=== PATIENT | male | born 1965 | race African-American/Black ===

== ENCOUNTER 2018-04-09 14:05 | Inpatient (IN) | payer OTHER ==
[2018-04-09 15:13] VITALS: BMI 18.8
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
[2018-04-09] MEDS ORDERED: ACETAMINOPHEN 325 MG TABLET (FP) PO PRN (15:38)
[2018-04-09] MEDS ORDERED: MENTHOL/PHENOL 1 EACH UD MM PRN (15:38)
[2018-04-09] MEDS ORDERED: LOPERAMIDE HCL 2 MG CAPSULE PO PRN (15:38)
[2018-04-09] MEDS ORDERED: MAG HYDROX/AL HYDROX/SIMETH 30 ML UNIT-DOSE CUP PO PRN (15:38)
[2018-04-09] MEDS ORDERED: P-EPHED 60MG/TRIPROLIDI 2.5MG TABLET PO PRN (15:38)
[2018-04-09] MEDS ORDERED: MAGNESIUM HYDROX 2400MG/30ML ORAL SUSPENSION 30 ML CUP PO PRN (15:38)
[2018-04-09] MEDS ORDERED: NICOTINE POLACRILEX 2 MG GUM BC PRN (15:38)
[2018-04-09] MEDS ORDERED: chlordiazePOXIDE HCL 25 MG CAPSULE PO PRN (15:38)
[2018-04-09] MEDS ORDERED: MAGNESIUM CITRATE 300 ML BOTTLE PO PRN (15:38)
[2018-04-09] MEDS ORDERED: guaiFENesin/D-METHORPHAN HB 10 ML UNIT-DOSE CUPS PO PRN (15:38)
[2018-04-09] MEDS ORDERED: ALBUTEROL SO4 18 GM HFA INHALER IH PRN (15:40)
[2018-04-09] MEDS ORDERED: BACITRACIN 0.9 GM PACKET TP ONE (18:45)
[2018-04-09] MEDS: amLODIPine BESYLATE 5 MG TABLET (FP) PO SCH (19:11)
[2018-04-09] MEDS: metFORMIN HCL 500 MG TABLET (FP) PO SCH (19:11)
[2018-04-09] MEDS: chlordiazePOXIDE HCL 25 MG CAPSULE PO SCH ×2 (19:11→22:40)
[2018-04-09] MEDS: NICOTINE 14 MG/24 HOURS TOPICAL PATCH TD SCH (19:15)
[2018-04-09] MEDS: INSULIN SLIDING SCALE (NOVOLOG) 1 VIAL SQ SCH (19:15)
[2018-04-09] MEDS: ARTIFICIAL TEARS (POLYVINYL ALCOHOL 1.4%) OPTH DROPS OU SCH ×2 (19:23→22:39)
[2018-04-09] MEDS ORDERED: MELATONIN 5 MG TABLETS PO PRN (22:00)
[2018-04-09] MEDS: THIAMINE HCL 100 MG TABLET (FP) PO SCH (22:40)
[2018-04-09] MEDS: RANITIDINE HCL 150 MG TABLET (FP) PO SCH (22:40)
[2018-04-09 23:18] LABS: URINE APPEARANCE CLEAR; URINE BILIRUBIN NEGATIVE (<2.0 mg/dL); URINE BLOOD NEGATIVE (NEGATIVE); URINE COLOR LTYELLOW; URINE GLUCOSE (UA) NEGATIVE (NEGATIVE); URINE KETONE NEGATIVE (NEGATIVE); URINE LEUK ESTERASE NEGATIVE (NEGATIVE); URINE NITRITE NEGATIVE (NEGATIVE); URINE PROTEIN NEGATIVE (NEGATIVE); URINE UROBILINOGEN NEGATIVE mg/dL (0.2-1.0)
[2018-04-10] MEDS: chlordiazePOXIDE HCL 25 MG CAPSULE PO SCH ×4 (06:17→22:04)
[2018-04-10] MEDS: INSULIN SLIDING SCALE (NOVOLOG) 1 VIAL SQ SCH ×2 (06:55→16:26)
[2018-04-10] MEDS: metFORMIN HCL 500 MG TABLET (FP) PO SCH ×2 (08:36→17:24)
--- NOTE | 2018-04-10 09:44 | PN ---
S CIWA - CIWA Score Nausea/Vomitin Muscle Tremors: 3 Anxiety: 3 Agitation: 3 Paroxysmal Sweats: 3 Orientation: 0-Oriented Tacttile Disturbances: 0-None Auditory Disturbances: 0-None Visual Disturbances: 0-None Headache: 0-None Present CIWA-Ar Total Score: 14 BHS Progress Note (SOAP) Subjective: Sweats Sleep disturbance shakes Objective: 04/10/18 09:41 Awake on bed Not in distress Vital Signs Temperature 98.6 F 04/10/18 09:29 Pulse Rate 74 04/10/18 09:29 Respiratory Rate 18 04/10/18 09:29 Blood Pressure 124/87 04/10/18 09:29 O2 Sat by Pulse Oximetry (%) Laboratory Last Values POC Glucometer 88 UNITS (80-120) 04/10/18 05:49 Urine Color Ltyellow 04/09/18 22:07 Urine Appearance Clear 04/09/18 22:07 Urine pH 7.0 (5.0-8.0) D 04/09/18 22:07 Ur Specific [place] 1.023 (1.001-1.035) 04/09/18 22:07 Urine Protein Negative (NEGATIVE) 04/09/18 22:07 Urine Glucose (UA) Negative (NEGATIVE) 04/09/18 22:07 Urine Ketones Negative (NEGATIVE) 04/09/18 22:07 Urine Blood Negative (NEGATIVE) 04/09/18 22:07 Urine Nitrite Negative (NEGATIVE) 04/09/18 22:07 Urine Bilirubin Negative (<2.0 mg/dL) 04/09/18 22:07 Urine Urobilinogen Negative mg/dL (0.2-1.0) 04/09/18 22:07 Ur Leukocyte Esterase Negative (NEGATIVE) 04/09/18 22:07 UA noted, hematology and chem results pending Assessment: 04/10/18 09:43 withdrawal sx Plan: continue detox
[2018-04-10] MEDS ORDERED: PRENATAL VITAMINS W/ FOLIC ACID TABLET (FP) PO SCH (10:00)
[2018-04-10] MEDS: RANITIDINE HCL 150 MG TABLET (FP) PO SCH ×2 (10:14→22:04)
[2018-04-10] MEDS: amLODIPine BESYLATE 5 MG TABLET (FP) PO SCH (10:14)
[2018-04-10] MEDS: NICOTINE 14 MG/24 HOURS TOPICAL PATCH TD SCH (10:14)
[2018-04-10] MEDS: ARTIFICIAL TEARS (POLYVINYL ALCOHOL 1.4%) OPTH DROPS OU SCH ×4 (10:15→22:15)
[2018-04-10 10:37] LABS: ALBUMIN 2.8 g/dl (3.4-5.0); ANION GAP 5 (8-16); BILIRUBIN,TOTAL 0.1 mg/dL (0.2-1.0); BLOOD UREA NITROGEN 14 mg/dL (7-18); CALCIUM 7.9 mg/dL (8.5-10.1); CHLORIDE 107 mmol/L (98-107); CO2 29 mmol/L (21-32); CREATININE 0.9 mg/dL (0.7-1.3); GLUCOSE,RANDOM 79 mg/dL (74-106); POTASSIUM 4.1 mmol/L (3.5-5.1); SGOT/AST 34 U/L (15-37); SGPT/ALT 41 U/L (12-78); SODIUM 141 mmol/L (136-145)
[2018-04-10 10:38] LABS: ALK PHOS 51 U/L (45-117); HEMATOCRIT 38.8 % (35.4-49); HEMOGLOBIN 12.8 GM/dL (11.7-16.9); MCH 31.3 pg (25.7-33.7); MCHC 32.9 g/dl (32.0-35.9); MEAN PLT VOLUME 8.4 fl (7.5-11.1); PLATELET COUNT 241 K/MM3 (134-434); RBC 4.08 M/mm3 (4.00-5.60); RDW 13.1 % (11.9-15.9); WHITE BLOOD COUNT 4.8 K/mm3 (4.0-10.0)
--- NOTE | 2018-04-10 11:26 | EKG ---
Test Reason : Blood Pressure : / mmHG Vent. Rate : 075 BPM Atrial Rate : 075 BPM P-R Int : 140 ms QRS Dur : 086 ms QT Int : 390 ms P-R-T Axes : 082 083 077 degrees QTc Int : 435 ms NORMAL SINUS RHYTHM NORMAL ECG NO PREVIOUS ECGS AVAILABLE Confirmed by RAYMOND LEWIS MD ([id number]) on 04/10/2018 11:26:18 AM Referred By: Confirmed By:RAYMOND LEWIS MD
--- NOTE | 2018-04-10 16:03 | CONSULT ---
[facility] Psychiatric Consult - Data Date of interview: 04/10/18 Admission source: [facility] Identifying data: Readmission to [facility] for this 52 y/o AA male seeking detox treatment on for alcohol,cocaine (crack) and cannabis dependence.Patient is single,a father of one,homeless,unemployed and supported on SSI benefits. Substance Abuse History: Confirmed by patient in this session.Smoking history: Current every day smoker. Have you smoked in the past 12 months: Yes. Aproximately how many cigarettes per day: 3. Cigars Per Day: 3. Hx Chewing Tobacco Use: No. Initiated information on smoking cessation: Yes. 'Breaking Loose' booklet given: 04/09/18. - Substance & Tx. History. Hx Alcohol Use: Yes. Hx Substance Use: Yes. Substance Use Type: Alcohol, Cocaine, Marijuana. Hx Substance Use Treatment: Yes (03/2018). - Substances Abused. Alcohol. Route: Oral. Frequency: Daily. Amount used: 2 1/2 vodka. Age of first use: 18. Date of Last Use: 04/09/18 Medical History: Medical co-morbidities : peptic ulcer disease,bronchial asthma, diabetes mellitus,hypertension,weight gain and decreased vision (right eye). Psychiatric History: Patient endorses a history of psychiatric hospitalizations at [facility] ([facility]).Diagnosed with Bipolar Disorder.Mr Dhaliwal explains that he " used to be on " seroquel, medication that has not been taken " for a while."Totally lost to psychiatric aftercare.Patient admits to one suicide attempt (overdose with medications). Physical/Sexual Abuse/Trauma History: Patient denies. Additional Comment: Urine Drug Screen Results: THC-Marijuana, JENNIFER-Cocaine.Noted. Mental Status Exam - Mental Status Exam Alert and Oriented to: Time, Place, Person Cognitive Function: Good Patient Appearance: Well Groomed Mood: Nervous, Withdrawn Affect: Mood Congruent, Constricted Patient Behavior: Fatigued, Cooperative Speech Pattern: Clear Voice Loudness: Normal Thought Process: Goal Oriented Thought Disorder: Not Present Hallucinations: Denies Suicidal Ideation: Denies Homicidal Ideation: Denies Insight/Judgement: Poor Sleep: Well Appetite: Good Muscle strength/Tone: Normal Gait/Station: Other (not observed ; patient remains supine for the duration of interview) Psychiatric Findings - Problem List ([place] 1, 2,3) (1) Alcohol dependence with uncomplicated withdrawal Current Visit: Yes Status: Acute (2) Cocaine dependence Current Visit: Yes Status: Active (3) marijuana dependence Current Visit: Yes Status: Active (4) Nicotine dependence Current Visit: Yes Status: Acute Qualifiers: Nicotine product type: cigarettes Substance use status: in withdrawal Qualified Code(s): F17.213 - Nicotine dependence, cigarettes, with withdrawal (5) Substance induced mood disorder Current Visit: Yes Status: Acute (6) Bipolar II disorder Current Visit: Yes Status: Chronic Comment: As per self-report. - Initial Treatment Plan Initial Treatment Plan: Psychoeducation.Sleep hygiene.Detoxification in progress.Observation.
[2018-04-10] MEDS: THIAMINE HCL 100 MG TABLET (FP) PO SCH (22:04)
[2018-04-11 05:41] VITALS: BP 129/73
[2018-04-11] MEDS: chlordiazePOXIDE HCL 25 MG CAPSULE PO SCH (05:50)
[2018-04-11] MEDS: metFORMIN HCL 500 MG TABLET (FP) PO SCH (06:33)
[2018-04-11] MEDS ORDERED: INSULIN (NOVOLOG) ASPART 100 UNITS/ML 10ML VIAL ONE ×2 (07:30→07:32)
[2018-04-11] MEDS: INSULIN SLIDING SCALE (NOVOLOG) 1 VIAL SQ SCH (07:41)
[2018-04-11 09:03] VITALS: PULSE 18; TEMP 96.2
--- NOTE | 2018-04-11 11:45 | PN ---
S CIWA - CIWA Score Nausea/Vomitin Muscle Tremors: None Anxiety: 3 Agitation: 0-Normal Activity Paroxysmal Sweats: 3 Orientation: 0-Oriented Tacttile Disturbances: 2-Mild Itch/Numbness/Burn Auditory Disturbances: 0-None Visual Disturbances: 1-Very Mild Sensitivity Headache: 2-Mild CIWA-Ar Total Score: 16 BHS Progress Note (SOAP) Subjective: Vomiting, Sweating, H/A, Body Aches. Objective: PATIENT A & O X 3, OBSERVED AMBULATING ON UNIT. NO ACUTE DISTRESS. 04/11/18 11:43 Vital Signs Temperature 96.2 F L 04/11/18 09:02 Pulse Rate 18 L 04/11/18 09:02 Respiratory Rate 119 H 04/11/18 09:02 Blood Pressure 129/73 04/11/18 09:02 O2 Sat by Pulse Oximetry (%) Laboratory Tests 04/09/18 04/09/18 04/10/18 19:05 22:07 05:49 WBC RBC Hgb Hct MCV MCH MCHC RDW Plt Count MPV Sodium Potassium Chloride Carbon Dioxide Anion Gap BUN Creatinine Creat Clearance w eGFR POC Glucometer 97 88 Random Glucose Calcium Total Bilirubin AST ALT Alkaline Phosphatase Total Protein Albumin Urine Color Ltyellow Urine Appearance Clear Urine pH 7.0 D Ur Specific [place] 1.023 Urine Protein Negative Urine Glucose (UA) Negative Urine Ketones Negative Urine Blood Negative Urine Nitrite Negative Urine Bilirubin Negative Urine Urobilinogen Negative Ur Leukocyte Esterase Negative RPR Titer 04/10/18 04/10/18 04/10/18 07:00 07:00 07:00 WBC 4.8 RBC 4.08 Hgb 12.8 Hct 38.8 MCV 95.0 MCH 31.3 MCHC 32.9 RDW 13.1 Plt Count 241 MPV 8.4 D Sodium 141 Potassium 4.1 Chloride 107 Carbon Dioxide 29 Anion Gap 5 L BUN 14 D Creatinine 0.9 Creat Clearance w eGFR > 60 POC Glucometer Random Glucose 79 D Calcium 7.9 L Total Bilirubin 0.1 L D AST 34 D ALT 41 D Alkaline Phosphatase 51 Total Protein 6.0 L Albumin 2.8 L D Urine Color Urine Appearance Urine pH Ur Specific [place] Urine Protein Urine Glucose (UA) Urine Ketones Urine Blood Urine Nitrite Urine Bilirubin Urine Urobilinogen Ur Leukocyte Esterase RPR Titer Nonreactive 04/10/18 04/11/18 16:16 05:53 WBC RBC Hgb Hct MCV MCH MCHC RDW Plt Count MPV Sodium Potassium Chloride Carbon Dioxide Anion Gap BUN Creatinine Creat Clearance w eGFR POC Glucometer 92 260 Random Glucose Calcium Total Bilirubin AST ALT Alkaline Phosphatase Total Protein Albumin Urine Color Urine Appearance Urine pH Ur Specific [place] Urine Protein Urine Glucose (UA) Urine Ketones Urine Blood Urine Nitrite Urine Bilirubin Urine Urobilinogen Ur Leukocyte Esterase RPR Titer LABS NOTED. Assessment: 04/11/18 11:43 WITHDRAWAL SYMPTOMS. Plan: CONTINUE DETOX.
--- NOTE | 2018-04-11 11:48 | DS ---
[facility] Detox Discharge Summary Admission Date: 04/09/18 Discharge Date: 04/11/18 - History Present History: Alcohol Dependence, Cannabis Dependence, Cocaine Dependence Additional Comments: PATIENT DOES NOT WISH TO STAY TO COMPLETE DETOX REGIMEN. RISKS OF LEAVING DETOX UNIT AGAINST MEDICAL ADVICE AND PRIOR TO COMPLETION OF DETOX REGIMEN EXPLAINED TO PATIENT. PATIENT ADVISED TO GO IMMEDIATELY TO NEAREST ER SHOULD ANY INTOLERABLE DETOX SYMPTOMS DEVELOP AT ANY TIME. PATIENT LEFT DETOX UNIT IN STABLE MEDICAL CONDITION. Pertinent Past History: GERD, Peptic Ulcer Disease, Asthma, HTN, Type II DM, Dry Eye, History of Schizophrenia, History of Bipolar II Disorder, Weight Loss, Nicotine Dependence. - Physical Exam Results Vital Signs: Vital Signs Temperature 96.2 F L 04/11/18 09:02 Pulse Rate 18 L 04/11/18 09:02 Respiratory Rate 119 H 04/11/18 09:02 Blood Pressure 129/73 04/11/18 09:02 O2 Sat by Pulse Oximetry (%) Pertinent Admission Physical Exam Findings: WITHDRAWAL SYMPTOMS. Laboratory Tests 04/09/18 04/09/18 04/10/18 19:05 22:07 05:49 WBC RBC Hgb Hct MCV MCH MCHC RDW Plt Count MPV Sodium Potassium Chloride Carbon Dioxide Anion Gap BUN Creatinine Creat Clearance w eGFR POC Glucometer 97 88 Random Glucose Calcium Total Bilirubin AST ALT Alkaline Phosphatase Total Protein Albumin Urine Color Ltyellow Urine Appearance Clear Urine pH 7.0 D Ur Specific [place] 1.023 Urine Protein Negative Urine Glucose (UA) Negative Urine Ketones Negative Urine Blood Negative Urine Nitrite Negative Urine Bilirubin Negative Urine Urobilinogen Negative Ur Leukocyte Esterase Negative RPR Titer 04/10/18 04/10/18 04/10/18 07:00 07:00 07:00 WBC 4.8 RBC 4.08 Hgb 12.8 Hct 38.8 MCV 95.0 MCH 31.3 MCHC 32.9 RDW 13.1 Plt Count 241 MPV 8.4 D Sodium 141 Potassium 4.1 Chloride 107 Carbon Dioxide 29 Anion Gap 5 L BUN 14 D Creatinine 0.9 Creat Clearance w eGFR > 60 POC Glucometer Random Glucose 79 D Calcium 7.9 L Total Bilirubin 0.1 L D AST 34 D ALT 41 D Alkaline Phosphatase 51 Total Protein 6.0 L Albumin 2.8 L D Urine Color Urine Appearance Urine pH Ur Specific [place] Urine Protein Urine Glucose (UA) Urine Ketones Urine Blood Urine Nitrite Urine Bilirubin Urine Urobilinogen Ur Leukocyte Esterase RPR Titer Nonreactive 04/10/18 04/11/18 16:16 05:53 WBC RBC Hgb Hct MCV MCH MCHC RDW Plt Count MPV Sodium Potassium Chloride Carbon Dioxide Anion Gap BUN Creatinine Creat Clearance w eGFR POC Glucometer 92 260 Random Glucose Calcium Total Bilirubin AST ALT Alkaline Phosphatase Total Protein Albumin Urine Color Urine Appearance Urine pH Ur Specific [place] Urine Protein Urine Glucose (UA) Urine Ketones Urine Blood Urine Nitrite Urine Bilirubin Urine Urobilinogen Ur Leukocyte Esterase RPR Titer LABS NOTED. - Treatment Hospital Course: Detoxed Safely - Medication Discharge Medications: Ambulatory Orders NK [No Known Home Medication] 04/09/18 - Diagnosis (1) Cocaine dependence Status: Active (2) Alcohol dependence with uncomplicated withdrawal Status: Acute (3) marijuana dependence Status: Active (4) Nicotine dependence Status: Acute Qualifiers: Nicotine product type: cigarettes Substance use status: in withdrawal Qualified Code(s): F17.213 - Nicotine dependence, cigarettes, with withdrawal (5) Substance induced mood disorder Status: Acute (6) Asthma Status: Chronic (7) Bipolar II disorder Status: Chronic (8) Dry eye Status: Chronic (9) GERD (gastroesophageal reflux disease) Status: Chronic Qualifiers: Esophagitis presence: without esophagitis Qualified Code(s): K21.9 - Gastro -esophageal reflux disease without esophagitis (10) Hypertension Status: Chronic Qualifiers: Hypertension type: essential hypertension Qualified Code(s): I10 - Essential (primary) hypertension - AMA Did Patient Leave Against Medical Advice: Yes (PATIENT DID NOT WISH TO STAY TO COMPLETE DETOX REGIMEN.)
[2018-04-11] MEDS ORDERED: chlordiazePOXIDE 5 MG CAPSULE PO SCH (17:00)
[2018-04-12] MEDS ORDERED: chlordiazePOXIDE HCL 10 MG CAPSULE PO SCH (17:00)
== END 2018-04-11 10:30 | disposition left against medical advice (07) | DRG 770 ==
LOC: YASAS 14:05 → Y3N 18:32
PROVIDERS: ADMIT Surgery; ATTEND Surgery
PROC: HZ2ZZZZ Detoxification Services for Substance Abuse Treatment (ICD-10-PCS; principal; 2018-04-09)
DX: F10.230 Alcohol dependence with withdrawal, uncomplicated (principal); F14.20 Cocaine dependence, uncomplicated; F12.20 Cannabis dependence, uncomplicated; F17.213 Nicotine dependence, cigarettes, with withdrawal; F19.24 Other psychoactive substance dependence with psychoactive substance-induced mood disorder; F31.81 Bipolar II disorder; I10 Essential (primary) hypertension; E11.9 Type 2 diabetes mellitus without complications; K27.9 Peptic ulcer, site unspecified, unspecified as acute or chronic, without hemorrhage or perforation; J45.909 Unspecified asthma, uncomplicated; H04.123 Dry eye syndrome of bilateral lacrimal glands; K21.9 Gastro-esophageal reflux disease without esophagitis; Z88.8 Allergy status to other drugs, medicaments and biological substances; Z91.013 Allergy to seafood; Z79.4 Long term (current) use of insulin; Z79.84 Long term (current) use of oral hypoglycemic drugs; Z87.898 Personal history of other specified conditions
CPT/HCPCS: 36415; 80053; 81003; 82962; 85027; 86593; 93005; 93010

== ENCOUNTER 2018-11-26 10:18 | Inpatient (IN) | payer OTHER ==
[2018-11-26 10:27] VITALS: BMI 19.1
--- NOTE | 2018-11-26 11:29 | HP ---
CIWA Score Nausea/Vomitin Muscle Tremors: 3 Anxiety: 2 Agitation: 2 Paroxysmal Sweats: 2 Orientation: 0-Oriented Tacttile Disturbances: 0-None Auditory Disturbances: 0-None Visual Disturbances: 0-None Headache: 2-Mild CIWA-Ar Total Score: 13 - Admission Criteria [facility] Guidelines: Admission for Medically Managed Detox: Requires at least one of the followin. CIWA greater than 12 2. Seizures within the past 24 hours 3. Delirium tremens within the past 24 hours 4. Hallucinations within the past 24 hours 5. Acute intervention needed for co occurring medical disorder 6. Acute intervention needed for co occurring psychiatric disorder 7. Severe withdrawal that cannot be handled at a lower level of care (continued vomiting, continued diarrhea, abnormal vital signs) requiring intravenous medication and/or fluids 8. Patient presents the following: CIWA greater than 12 Admission Criteria Met: Admission criteria met Admission ROS [facility] - [facility] Chief Complaint: " detox from alcohol, cocaine and marijuana" 53 yo asthma and DM- not taking medications for many months- was here about 6 months ago for the same detox- relapsed almost within a month of discharge- occ attends AA meeting. Alcohol: drinks 1-2 pints/day, no seizures, DT's Cocaine: $200-300/day, smoking marijuana; $25/day- stopped cig smoking DUR/ISTOP- no meds Utox: THC, cocaine, KIMBERLY- 0.022 Allergies/Adverse Reactions: Allergies Allergy/AdvReac Type Severity Reaction Status Date / Time Fish Containing Products Allergy Intermediate Hives Verified 11/26/18 10:33 [Fish Product Derivatives] haloperidol [From Haldol] Allergy Intermediate Hives Verified 11/26/18 10:33 haloperidol lactate Allergy Intermediate Hives Verified 11/26/18 10:33 [From Haldol] turkey Allergy Intermediate Hives Uncoded 11/26/18 10:33 - Ebola screening Have you traveled outside of the country in the last 21 days: No Have you been sick,other than usual withdrawal symptoms: No - Review of Systems Constitutional: No Symptoms Reported EENT: reports: No Symptoms Reported Respiratory: reports: No Symptoms reported Cardiac: reports: No Symptoms Reported GI: reports: No Symptoms Reported : reports: No Symptoms Reported Musculoskeletal: reports: No Symptoms Reported Integumentary: reports: No Symptoms Reported Neuro: reports: No Symptoms reported Endocrine: reports: No Symptoms Reported Hematology: reports: No Symptoms Reported Psychiatric: reports: No Sypmtoms Reported Other Systems: Reviewed and Negative Patient History - Patient Medical History Hx Anemia: No Hx Asthma: Yes (ALBUTEROL INHALER- not using) Hx Chronic Obstructive Pulmonary Disease (COPD): No Hx Cancer: No Hx Cardiac Disorders: No Hx Congestive Heart Failure: No Hx Hypertension: Yes Hx Hypercholesterolemia: No Hx Pacemaker: No HX Cerebrovascular Accident: No Hx Seizures: No Hx Dementia: No Hx Diabetes: Yes Hx Gastrointestinal Disorders: No (PEPCID) Hx Liver Disease: No Hx Genitourinary Disorders: No Hx Sexually Transmitted Disorders: No Hx Renal Disease (ESRD): No Hx Thyroid Disease: No Hx Human Immunodeficiency Virus (HIV): No Hx Hepatitis C: No Hx Depression: Yes (NOT CURRENTLY TAKING HIS MEDS) Hx Suicide Attempt: No (DENIES) Hx Bipolar Disorder: No Hx Schizophrenia: Yes - Patient Surgical History Past Surgical History: Yes Hx Neurologic Surgery: No Hx Cataract Extraction: No Hx Cardiac Surgery: No Hx Lung Surgery: No Hx Breast Surgery: No Hx Breast Biopsy: No Hx Abdominal Surgery: No Hx Appendectomy: No Hx Cholecystectomy: No Hx Genitourinary Surgery: No Hx Section: No Hx Orthopedic Surgery: No Other Surgical History: TOSILLECTOMY AT 13 YRS OLD Anesthesia Reaction: No - PPD History Previous Implant?: Yes Documented Results: Negative w/proof Implanted On Prior [facility] Admission?: Yes Date: 04/11/18 Results: NEGATIVE - Smoking Cessation Smoking history: Former smoker Have you smoked in the past 12 months: Yes Aproximately how many cigarettes per day: 0 Hx Chewing Tobacco Use: No Initiated information on smoking cessation: Yes 'Breaking Loose' booklet given: 11/26/18 - Substance & Tx. History Hx Alcohol Use: Yes Hx Substance Use: Yes Substance Use Type: Alcohol, Cocaine, Marijuana - Substances Abused Alcohol Route: Oral Frequency: Daily Amount used: 1-2 PINTS [place]ISKEY Age of first use: 14 Date of Last Use: 11/26/18 Marijuana/Hashish Route: Smoking Frequency: Daily Amount used: $20 Age of first use: 16 Date of Last Use: 11/25/18 Cocaine Route: Smoking Frequency: Daily Amount used: $200-$300 Age of first use: 24 Date of Last Use: 11/26/18 Family Disease History - Family Disease History Family Disease History: Diabetes: Father (), Heart Disease: Mother ( ), Other: Father, Mother Admission Physical Exam [facility] - Vital Signs Vital Signs: Vital Signs - 24 hr 11/26/18 10:25 Temperature 97.9 F Pulse Rate 70 Respiratory 18 Rate Blood Pressure 140/91 - Physical General Appearance: Yes: Within Normal Limits, Disheveled HEENTM: Yes: Within Normal Limits, EOMI, Hearing grossly Normal, Normal ENT Inspection, Pharynx Normal Respiratory: Yes: Within Normal Limits, Chest Non-Tender, Lungs Clear Neck: Yes: Within Normal Limits, No masses,lesions,Nodules Cardiology: Yes: Within Normal Limits, Regular Rhythm, Regular Rate, S1, S2 Abdominal: Yes: Within Normal Limits, Normal Bowel Sounds, Non Tender, Flat Back: Yes: Within Normal Limits Musculoskeletal: Yes: Within Normal Limits, full range of Motion, Gait Steady Extremities: Yes: Within Normal Limits, Normal Inspection, Normal Range of Motion Neurological: Yes: Within Normal Limits, designer and patternmaker II-XII NML intact, Fully Oriented, Alert Integumentary: Yes: Within Normal Limits, Dry Lymphatic: Yes: Within Normal Limits - Diagnostic (1) Alcohol dependence Current Visit: No Status: Active (2) Cocaine dependence Current Visit: No Status: Active (3) Weight decreased Current Visit: No Status: Active (4) Alcohol dependence with uncomplicated withdrawal Current Visit: No Status: Acute (5) Asthma Current Visit: No Status: Chronic Cleared for Admission [facility] - Detox or Rehab [facility] Level of Care: Medically Managed [facility] Breath Alcohol Content Breath Alcohol Content: 0.022 Urine Drug Screen - Results Drug Screen Negative: No Urine Drug Screen Results: THC-Marijuana, JENNIFER-Cocaine
[2018-11-26] MEDS ORDERED: MAGNESIUM HYDROX 2400MG/30ML ORAL SUSPENSION 30 ML CUP PO PRN (11:34)
[2018-11-26] MEDS ORDERED: hydrOXYzine PAMOATE 25 MG CAPSULE (FP) PO PRN (11:34)
[2018-11-26] MEDS ORDERED: guaiFENesin/D-METHORPHAN HB 10 ML UNIT-DOSE CUPS PO PRN (11:34)
[2018-11-26] MEDS ORDERED: IBUPROFEN 400 MG TABLET (FP) PO PRN (11:34)
[2018-11-26] MEDS ORDERED: ACETAMINOPHEN 325 MG TABLET (FP) PO PRN (11:34)
[2018-11-26] MEDS ORDERED: MENTHOL/PHENOL 1 EACH UD MM PRN (11:34)
[2018-11-26] MEDS ORDERED: MAG HYDROX/AL HYDROX/SIMETH 30 ML UNIT-DOSE CUP PO PRN (11:34)
[2018-11-26] MEDS ORDERED: MAGNESIUM CITRATE 300 ML BOTTLE PO PRN (11:34)
[2018-11-26] MEDS ORDERED: P-EPHED 60MG/TRIPROLIDI 2.5MG TABLET PO PRN (11:34)
[2018-11-26] MEDS ORDERED: LOPERAMIDE HCL 2 MG CAPSULE PO PRN (11:34)
[2018-11-26] MEDS ORDERED: chlordiazePOXIDE HCL 25 MG CAPSULE PO PRN (11:35)
[2018-11-26] MEDS ORDERED: ALBUTEROL SO4 8 GM HFA INHALER IH PRN (11:36)
[2018-11-26] MEDS ORDERED: chlordiazePOXIDE 5 MG CAPSULE PO PRN (13:40)
[2018-11-26] MEDS: chlordiazePOXIDE HCL 25 MG CAPSULE PO SCH ×2 (18:19→22:37)
[2018-11-26] MEDS ORDERED: MELATONIN 5 MG TABLETS PO PRN (22:00)
[2018-11-26] MEDS: THIAMINE HCL 100 MG TABLET (FP) PO SCH (22:36)
[2018-11-26 23:00] LABS: URINE APPEARANCE CLEAR; URINE BILIRUBIN NEGATIVE (<2.0 mg/dL); URINE COLOR LTYELLOW; URINE GLUCOSE (UA) NEGATIVE (NEGATIVE); URINE KETONE NEGATIVE (NEGATIVE); URINE LEUK ESTERASE NEGATIVE (NEGATIVE); URINE NITRITE NEGATIVE (NEGATIVE); URINE PROTEIN 1+ (NEGATIVE); URINE UROBILINOGEN NEGATIVE mg/dL (0.2-1.0)
[2018-11-26 23:03] LABS: EPI CELLS RARE /HPF (FEW); URINE MUCUS RARE
[2018-11-27] MEDS: chlordiazePOXIDE HCL 25 MG CAPSULE PO SCH ×2 (06:34→10:25)
[2018-11-27] MEDS ORDERED: PRENATAL VITAMINS W/ FOLIC ACID TABLET (FP) PO SCH (10:00)
[2018-11-27 10:05] LABS: HEMATOCRIT 40.4 % (35.4-49); HEMOGLOBIN 13.5 GM/dL (11.7-16.9); MCH 32.1 pg (25.7-33.7); MCHC 33.6 g/dl (32.0-35.9); MEAN CELL VOLUME 95.7 fl (80-96); MEAN PLT VOLUME 8.8 fl (7.5-11.1); PLATELET COUNT 213 K/MM3 (134-434); RBC 4.22 M/mm3 (4.00-5.60); RDW 13.6 % (11.9-15.9); WHITE BLOOD COUNT 3.4 K/mm3 (4.0-10.0)
[2018-11-27 10:12] LABS: ALBUMIN 3.2 g/dl (3.4-5.0); ALK PHOS 51 U/L (45-117); ANION GAP 7 MMOL/L (8-16); BILIRUBIN,TOTAL 0.2 mg/dL (0.2-1); BLOOD UREA NITROGEN 16 mg/dL (7-18); CALCIUM 8.4 mg/dL (8.5-10.1); CHLORIDE 108 mmol/L (98-107); CO2 26 mmol/L (21-32); CREATININE 0.9 mg/dL (0.55-1.3); GLUCOSE,RANDOM 97 mg/dL (74-106); POTASSIUM 4.3 mmol/L (3.5-5.1); SGOT/AST 27 U/L (15-37); SGPT/ALT 30 U/L (13-61); SODIUM 142 mmol/L (136-145); TOT PROT 6.4 g/dl (6.4-8.2)
--- NOTE | 2018-11-27 15:17 | PN ---
S CIWA - CIWA Score Nausea/Vomitin Muscle Tremors: None Anxiety: 0-No Anxiety, at Ease Agitation: 0-Normal Activity Paroxysmal Sweats: 3 Orientation: 0-Oriented Tacttile Disturbances: 2-Mild Itch/Numbness/Burn Auditory Disturbances: 0-None Visual Disturbances: 3-Moderate Sensitivity Headache: 0-None Present CIWA-Ar Total Score: 13 [facility] Progress Note (SOAP) Subjective: Vomiting, Sweating, Body Aches. Objective: PATIENT A & O X 3. IN NO ACUTE DISTRESS. PATIENT REPORTS HISTORY OF TYPE II DIABETES MELLITUS FOR WHICH HE HAS TAKEN MEDICATION IN THE PAST, BUT THAT HE HAS BEEN MANAGING THE DISORDER THROUGH DIET RECENTLY. 11/27/18 15:19 Vital Signs Temperature 98.4 F 11/27/18 13:27 Pulse Rate 75 11/27/18 13:27 Respiratory Rate 20 11/27/18 13:27 Blood Pressure 125/63 11/27/18 13:27 O2 Sat by Pulse Oximetry (%) Laboratory Tests 11/26/18 11/26/18 11/27/18 12:14 13:47 07:01 WBC RBC Hgb Hct MCV MCH MCHC RDW Plt Count MPV Sodium Potassium Chloride Carbon Dioxide Anion Gap BUN Creatinine Creat Clearance w eGFR POC Glucometer 95 92 Random Glucose Calcium Total Bilirubin AST ALT Alkaline Phosphatase Total Protein Albumin Urine Color Ltyellow Urine Appearance Clear Urine pH 8.0 Ur Specific Candler 1.024 Urine Protein 1+ H Urine Glucose (UA) Negative Urine Ketones Negative Urine Blood Negative Urine Nitrite Negative Urine Bilirubin Negative Urine Urobilinogen Negative Ur Leukocyte Esterase Negative Urine WBC (Auto) 1 Urine RBC (Auto) <1 Ur Epithelial Cells Rare Urine Mucus Rare RPR Titer HIV 1&2 Antibody Screen HIV P24 Antigen 11/27/18 11/27/18 11/27/18 07:55 07:55 07:55 WBC 3.4 L RBC 4.22 Hgb 13.5 Hct 40.4 MCV 95.7 MCH 32.1 MCHC 33.6 RDW 13.6 Plt Count 213 MPV 8.8 Sodium 142 Potassium 4.3 Chloride 108 H Carbon Dioxide 26 Anion Gap 7 L BUN 16 Creatinine 0.9 Creat Clearance w eGFR > 60 POC Glucometer Random Glucose 97 Calcium 8.4 L Total Bilirubin 0.2 AST 27 ALT 30 Alkaline Phosphatase 51 Total Protein 6.4 Albumin 3.2 L Urine Color Urine Appearance Urine pH Ur Specific Candler Urine Protein Urine Glucose (UA) Urine Ketones Urine Blood Urine Nitrite Urine Bilirubin Urine Urobilinogen Ur Leukocyte Esterase Urine WBC (Auto) Urine RBC (Auto) Ur Epithelial Cells Urine Mucus RPR Titer HIV 1&2 Antibody Screen Negative HIV P24 Antigen Negative 11/27/18 07:55 WBC RBC Hgb Hct MCV MCH MCHC RDW Plt Count MPV Sodium Potassium Chloride Carbon Dioxide Anion Gap BUN Creatinine Creat Clearance w eGFR POC Glucometer Random Glucose Calcium Total Bilirubin AST ALT Alkaline Phosphatase Total Protein Albumin Urine Color Urine Appearance Urine pH Ur Specific Candler Urine Protein Urine Glucose (UA) Urine Ketones Urine Blood Urine Nitrite Urine Bilirubin Urine Urobilinogen Ur Leukocyte Esterase Urine WBC (Auto) Urine RBC (Auto) Ur Epithelial Cells Urine Mucus RPR Titer Nonreactive HIV 1&2 Antibody Screen HIV P24 Antigen LABS NOTED. 11/27/18 15:20 Assessment: 11/27/18 15:19 WITHDRAWAL SYMPTOMS. LEUKOPENIA. 11/27/18 15:19 Plan: CONTINUE DETOX. INCREASE DAILY PO FLUID INTAKE. PATIENT DECLINES OFFER OF ANTI-EMETIC MEDICATION AT THIS TIME.
[2018-11-27] MEDS ORDERED: chlordiazePOXIDE HCL 25 MG CAPSULE PO SCH (17:00)
[2018-11-27] MEDS: THIAMINE HCL 100 MG TABLET (FP) PO SCH (23:18)
[2018-11-27] MEDS: chlordiazePOXIDE 5 MG CAPSULE PO SCH (23:19)
[2018-11-28] MEDS: chlordiazePOXIDE 5 MG CAPSULE PO SCH (05:52)
--- NOTE | 2018-11-28 08:59 | PN ---
[facility] Progress Note Note: pt states he has a family issue that needs his attention. Pt was consulted not to leave but insisted on signing AMA.
--- NOTE | 2018-11-28 09:01 | DS ---
[facility] Detox Discharge Summary Admission Date: 11/26/18 Discharge Date: 11/28/18 - History Present History: Alcohol Dependence, Cocaine Dependence - Physical Exam Results Vital Signs: Vital Signs Temperature 98.4 F 11/28/18 06:00 Pulse Rate 86 11/28/18 06:00 Respiratory Rate 18 11/28/18 06:00 Blood Pressure 128/99 11/28/18 06:00 O2 Sat by Pulse Oximetry (%) - Treatment Hospital Course: Detox Protocol Followed, Detoxed Safely, Responded well, Discharged Condition Good, Rehab Referral Accepted - Medication Discharge Medications: Ambulatory Orders Albuterol Sulfate Inhaler - [Ventolin Hfa Inhaler -] 1 - 2 inh PO Q4H PRN - Diagnosis (1) Alcohol dependence Current Visit: Yes Status: Acute (2) Cocaine dependence Current Visit: Yes Status: Active (3) Weight decreased Current Visit: No Status: Active (4) bipolar disorder with depression Current Visit: No Status: Active (5) marijuana dependence Current Visit: No Status: Active (6) s/p surgery for fx of mandibles Current Visit: No Status: Active (7) syncope alcohol related Current Visit: No Status: Active (8) Alcohol dependence with uncomplicated withdrawal Current Visit: No Status: Acute (9) Nicotine dependence Current Visit: No Status: Acute Qualifiers: Nicotine product type: cigarettes Substance use status: in withdrawal Qualified Code(s): F17.213 - Nicotine dependence, cigarettes, with withdrawal (10) Substance induced mood disorder Current Visit: No Status: Acute (11) Weight loss Current Visit: No Status: Acute (12) Asthma Current Visit: No Status: Chronic (13) Bipolar II disorder Current Visit: No Status: Chronic (14) Dry eye Current Visit: No Status: Chronic (15) GERD (gastroesophageal reflux disease) Current Visit: No Status: Chronic Qualifiers: Esophagitis presence: without esophagitis Qualified Code(s): K21.9 - Gastro -esophageal reflux disease without esophagitis (16) Hypertension Current Visit: No Status: Chronic Qualifiers: Hypertension type: essential hypertension Qualified Code(s): I10 - Essential (primary) hypertension
[2018-11-28 09:47] VITALS: BP 139/79; PULSE 94; TEMP 98.1
[2018-11-28] MEDS ORDERED: chlordiazePOXIDE HCL 10 MG CAPSULE PO SCH (17:00)
[2018-11-29] MEDS ORDERED: chlordiazePOXIDE 5 MG CAPSULE PO SCH (17:00)
== END 2018-11-28 09:13 | disposition left against medical advice (07) | DRG 770 ==
LOC: YASAS 10:18 → Y6N 12:19
PROVIDERS: ADMIT Neuromusculoskeletal Medicine & OMM; ATTEND Neuromusculoskeletal Medicine & OMM
PROC: HZ2ZZZZ Detoxification Services for Substance Abuse Treatment (ICD-10-PCS; principal; 2018-11-26)
DX: F10.230 Alcohol dependence with withdrawal, uncomplicated (principal); F14.20 Cocaine dependence, uncomplicated; F12.20 Cannabis dependence, uncomplicated; F17.213 Nicotine dependence, cigarettes, with withdrawal; F31.81 Bipolar II disorder; F19.24 Other psychoactive substance dependence with psychoactive substance-induced mood disorder; I10 Essential (primary) hypertension; J45.909 Unspecified asthma, uncomplicated; H04.129 Dry eye syndrome of unspecified lacrimal gland; K21.9 Gastro-esophageal reflux disease without esophagitis; D72.819 Decreased white blood cell count, unspecified; Z91.013 Allergy to seafood; Z88.8 Allergy status to other drugs, medicaments and biological substances
CPT/HCPCS: 36415; 80053; 81003; 81015; 82962; 85027; 86593; 87389

== ENCOUNTER 2020-12-11 15:05 | Inpatient (IN) | payer OTHER ==
[2020-12-11] MEDS ORDERED: BISMUTH SUBSALICYLATE 524 MG/30 ML UD PO PRN (16:00)
[2020-12-11] MEDS ORDERED: MAGNESIUM HYDROX 2400MG/30ML ORAL SUSPENSION 30 ML CUP PO PRN (16:00)
[2020-12-11] MEDS ORDERED: ONDANSETRON *ODT* 4 MG TABLET SL PRN (16:00)
[2020-12-11] MEDS ORDERED: chlordiazePOXIDE HCL 25 MG CAPSULE PO PRN (16:00)
[2020-12-11] MEDS ORDERED: ACETAMINOPHEN 325 MG TABLET (FP) PO PRN ×2 (16:00)
[2020-12-11] MEDS ORDERED: METHOCARBAMOL 500 MG TABLET PO PRN (16:00)
[2020-12-11] MEDS ORDERED: MAGNESIUM CITRATE 300 ML BOTTLE PO PRN (16:00)
[2020-12-11] MEDS ORDERED: MAG HYDROX/AL HYDROX/SIMETH 30 ML UNIT-DOSE CUP PO PRN (16:00)
[2020-12-11] MEDS ORDERED: MENTHOL/PHENOL 1 EACH UD MM PRN (16:00)
[2020-12-11] MEDS ORDERED: ALBUTEROL SO4 HFA INHALER IH PRN (16:10)
[2020-12-11 16:52] VITALS: BMI 19.0
[2020-12-11] MEDS: metFORMIN HCL 500 MG TABLET (FP) PO SCH (18:21)
[2020-12-11] MEDS: hydrOXYzine PAMOATE 25 MG CAPSULE (FP) PO SCH ×2 (18:21→22:32)
[2020-12-11] MEDS: PRENATAL VITAMINS W/ FOLIC ACID TABLET (FP) PO SCH (18:22)
[2020-12-11] MEDS: INSULIN SLIDING SCALE (NOVOLOG) 1 VIAL SQ SCH (18:22)
[2020-12-11] MEDS: IBUPROFEN 400 MG TABLET (FP) PO PRN (18:24)
[2020-12-11] MEDS: FAMOTIDINE 20 MG TABLET PO SCH (22:31)
[2020-12-11] MEDS: MINERAL OIL/PETROLAT/WATER TOPICAL CREAM 113 GM JAR TP SCH (22:31)
[2020-12-11] MEDS: LISINOPRIL 5 MG TABLET PO SCH (22:31)
[2020-12-11] MEDS: MELATONIN 5 MG TABLETS PO SCH (22:31)
[2020-12-11] MEDS: chlordiazePOXIDE HCL 25 MG CAPSULE PO SCH (22:32)
[2020-12-11] MEDS: THIAMINE HCL 100 MG TABLET (FP) PO SCH (22:32)
[2020-12-11] MEDS: BUDESONIDE/FORMETEROL FUMARATE 80/4.5 mcg INHALER IH SCH (22:32)
[2020-12-12] MEDS: chlordiazePOXIDE HCL 25 MG CAPSULE PO SCH ×4 (06:03→23:07)
[2020-12-12] MEDS: hydrOXYzine PAMOATE 25 MG CAPSULE (FP) PO SCH ×5 (06:05→23:06)
[2020-12-12] MEDS: metFORMIN HCL 500 MG TABLET (FP) PO SCH ×2 (07:15→17:46)
[2020-12-12] MEDS: INSULIN SLIDING SCALE (NOVOLOG) 1 VIAL SQ SCH ×2 (07:15→17:47)
[2020-12-12] MEDS: PRENATAL VITAMINS W/ FOLIC ACID TABLET (FP) PO SCH (10:19)
[2020-12-12] MEDS: MINERAL OIL/PETROLAT/WATER TOPICAL CREAM 113 GM JAR TP SCH ×2 (10:20→23:06)
[2020-12-12] MEDS: LISINOPRIL 5 MG TABLET PO SCH ×2 (10:21→23:06)
[2020-12-12] MEDS: BUDESONIDE/FORMETEROL FUMARATE 80/4.5 mcg INHALER IH SCH ×2 (10:21→23:06)
[2020-12-12] MEDS: FAMOTIDINE 20 MG TABLET PO SCH ×2 (10:21→23:06)
[2020-12-12 10:50] LABS: HEMOGLOBIN 12.8 GM/dL (11.7-16.9); MCH 32.2 pg (25.7-33.7); MCHC 33.7 g/dl (32.0-35.9); MEAN CELL VOLUME 95.7 fl (80-96); MEAN PLT VOLUME 8.8 fl (7.5-11.1); PLATELET COUNT 196 K/MM3 (134-434); RBC 3.97 M/mm3 (4.00-5.60); RDW 13.4 % (11.9-15.9)
[2020-12-12 11:17] LABS: POTASSIUM 4.2 mmol/L (3.5-5.1)
[2020-12-12 11:21] LABS: CALCIUM 8.4 mg/dL (8.5-10.1)
[2020-12-12 11:22] LABS: ALBUMIN 3.1 g/dl (3.4-5.0); BLOOD UREA NITROGEN 21.7 mg/dL (7-18)
[2020-12-12 11:25] LABS: CREATININE 1.1 mg/dL (0.55-1.3)
[2020-12-12 11:27] LABS: BILIRUBIN,TOTAL 0.2 mg/dL (0.2-1); TOT PROT 6.4 g/dl (6.4-8.2)
[2020-12-12] MEDS: MELATONIN 5 MG TABLETS PO SCH (23:06)
[2020-12-12] MEDS: THIAMINE HCL 100 MG TABLET (FP) PO SCH (23:07)
[2020-12-13] MEDS: chlordiazePOXIDE HCL 25 MG CAPSULE PO SCH ×2 (05:16→10:19)
[2020-12-13] MEDS: hydrOXYzine PAMOATE 25 MG CAPSULE (FP) PO SCH ×3 (05:16→14:57)
[2020-12-13] MEDS: metFORMIN HCL 500 MG TABLET (FP) PO SCH (06:31)
[2020-12-13] MEDS: IBUPROFEN 400 MG TABLET (FP) PO PRN (06:31)
[2020-12-13] MEDS: INSULIN SLIDING SCALE (NOVOLOG) 1 VIAL SQ SCH (06:45)
[2020-12-13 09:54] VITALS: BP 123/79; PULSE 76; TEMP 97.3
[2020-12-13] MEDS: PRENATAL VITAMINS W/ FOLIC ACID TABLET (FP) PO SCH (10:18)
[2020-12-13] MEDS: LISINOPRIL 5 MG TABLET PO SCH (10:18)
[2020-12-13] MEDS: FAMOTIDINE 20 MG TABLET PO SCH (10:18)
[2020-12-13] MEDS: BUDESONIDE/FORMETEROL FUMARATE 80/4.5 mcg INHALER IH SCH (10:19)
[2020-12-13] MEDS: MINERAL OIL/PETROLAT/WATER TOPICAL CREAM 113 GM JAR TP SCH (10:20)
[2020-12-14] MEDS ORDERED: chlordiazePOXIDE HCL 10 MG CAPSULE PO PRN
[2020-12-14] MEDS ORDERED: chlordiazePOXIDE HCL 10 MG CAPSULE PO SCH (05:00)
[2020-12-15] MEDS ORDERED: chlordiazePOXIDE HCL 10 MG CAPSULE PO SCH (05:00)
[2020-12-16] MEDS ORDERED: chlordiazePOXIDE HCL 10 MG CAPSULE PO ONE (05:00)
== END 2020-12-13 13:06 | disposition home or self-care (01) | DRG 774 ==
LOC: YASAS 15:05 → Y3N 17:05
PROVIDERS: ADMIT Allergy & Immunology; ATTEND Allergy & Immunology
PROC: HZ2ZZZZ Detoxification Services for Substance Abuse Treatment (ICD-10-PCS; principal; 2020-12-11)
DX: F10.230 Alcohol dependence with withdrawal, uncomplicated (principal); F14.20 Cocaine dependence, uncomplicated; F12.20 Cannabis dependence, uncomplicated; F17.210 Nicotine dependence, cigarettes, uncomplicated; F31.9 Bipolar disorder, unspecified; F20.9 Schizophrenia, unspecified; F19.24 Other psychoactive substance dependence with psychoactive substance-induced mood disorder; I10 Essential (primary) hypertension; J45.909 Unspecified asthma, uncomplicated; K21.9 Gastro-esophageal reflux disease without esophagitis; E11.9 Type 2 diabetes mellitus without complications; R63.4 Abnormal weight loss; Z68.1 Body mass index [BMI] 19.9 or less, adult; Z79.84 Long term (current) use of oral hypoglycemic drugs; Z88.8 Allergy status to other drugs, medicaments and biological substances; Z91.018 Allergy to other foods
CPT/HCPCS: 36415; 80053; 82962; 85027; 86780; 93005; 93010; C9803; U0003

== ENCOUNTER 2021-07-10 15:07 | Inpatient (IN) | payer OTHER ==
[2021-07-10] MEDS ORDERED: ALBUTEROL SO4 HFA INHALER IH PRN (16:10)
[2021-07-10] MEDS ORDERED: ONDANSETRON *ODT* 4 MG TABLET SL PRN (16:11)
[2021-07-10] MEDS ORDERED: METHOCARBAMOL 500 MG TABLET PO PRN (16:11)
[2021-07-10] MEDS ORDERED: BISMUTH SUBSALICYLATE 524 MG/30 ML PO PRN (16:11)
[2021-07-10] MEDS ORDERED: ACETAMINOPHEN 325 MG TABLET (FP) PO PRN ×2 (16:11)
[2021-07-10] MEDS ORDERED: hydrOXYzine PAMOATE 25 MG CAPSULE (FP) PO PRN (16:11)
[2021-07-10] MEDS ORDERED: MENTHOL/PHENOL 1 EACH UD MM PRN (16:11)
[2021-07-10] MEDS ORDERED: MAG HYDROX/AL HYDROX/SIMETH 30 ML UNIT-DOSE CUP PO PRN (16:11)
[2021-07-10] MEDS ORDERED: MAGNESIUM HYDROX 2400MG/30ML ORAL SUSPENSION 30 ML CUP PO PRN (16:11)
[2021-07-10] MEDS ORDERED: MAGNESIUM CITRATE 300 ML BOTTLE PO PRN (16:11)
[2021-07-10] MEDS ORDERED: diazePAM 5 MG TABLET PO PRN (16:13)
[2021-07-10] MEDS ORDERED: metFORMIN HCL 500 MG TABLET (FP) PO SCH (16:30)
[2021-07-10 20:32] VITALS: BMI 19.1
[2021-07-10] MEDS: MELATONIN 5 MG TABLETS PO SCH (23:02)
[2021-07-10] MEDS: metFORMIN HCL 500 MG TABLET (FP) PO SCH ×2 (23:02→23:16)
[2021-07-10] MEDS: FAMOTIDINE 20 MG TABLET PO SCH (23:03)
[2021-07-10] MEDS: THIAMINE HCL 100 MG TABLET (FP) PO SCH (23:04)
[2021-07-10] MEDS: diazePAM 5 MG TABLET PO SCH ×2 (23:04→23:05)
[2021-07-10] MEDS: LISINOPRIL 5 MG TABLET PO SCH (23:07)
[2021-07-10] MEDS: BUDESONIDE/FORMETEROL FUMARATE 80/4.5 mcg INHALER IH SCH (23:17)
[2021-07-11] MEDS: diazePAM 5 MG TABLET PO SCH ×4 (05:32→22:38)
[2021-07-11] MEDS: metFORMIN HCL 500 MG TABLET (FP) PO SCH ×2 (07:44→17:49)
[2021-07-11] MEDS: BUDESONIDE/FORMETEROL FUMARATE 80/4.5 mcg INHALER IH SCH ×2 (11:51→22:38)
[2021-07-11] MEDS: PRENATAL VITAMINS W/ FOLIC ACID TABLET (FP) PO SCH (11:52)
[2021-07-11] MEDS: LISINOPRIL 5 MG TABLET PO SCH ×2 (11:52→22:38)
[2021-07-11] MEDS: FAMOTIDINE 20 MG TABLET PO SCH ×2 (11:52→22:38)
[2021-07-11 15:20] LABS: HEMATOCRIT 40.6 % (35.4-49); HEMOGLOBIN 13.6 GM/dL (11.7-16.9); MCH 32.1 pg (25.7-33.7); MCHC 33.6 g/dl (32.0-35.9); MEAN CELL VOLUME 95.5 fl (80-96); PLATELET COUNT 223 10^3/uL (134-434); RBC 4.25 M/mm3 (4.00-5.60); RDW 13.9 % (11.9-15.9); WHITE BLOOD COUNT 3.9 K/mm3 (4.0-10.0)
[2021-07-11 15:22] LABS: CALCIUM 8.7 mg/dL (8.5-10.1)
[2021-07-11 15:26] LABS: BILIRUBIN,TOTAL 0.5 mg/dL (0.2-1); TOT PROT 6.6 g/dl (6.4-8.2)
[2021-07-11 16:14] LABS: HIV INTERPRETATION NEGATIVE (NEGATIVE)
[2021-07-11] MEDS: THIAMINE HCL 100 MG TABLET (FP) PO SCH (22:38)
[2021-07-11] MEDS: QUEtiapine FUMARATE 50 MG TABLET PO SCH (22:38)
[2021-07-11] MEDS: MELATONIN 5 MG TABLETS PO SCH (22:38)
[2021-07-12] MEDS: IBUPROFEN 400 MG TABLET (FP) PO PRN (05:28)
[2021-07-12] MEDS: diazePAM 5 MG TABLET PO SCH ×2 (05:28→17:40)
[2021-07-12] MEDS: metFORMIN HCL 500 MG TABLET (FP) PO SCH ×2 (08:23→16:30)
[2021-07-12] MEDS: PRENATAL VITAMINS W/ FOLIC ACID TABLET (FP) PO SCH (10:39)
[2021-07-12] MEDS: FAMOTIDINE 20 MG TABLET PO SCH ×2 (10:39→22:32)
[2021-07-12] MEDS: LISINOPRIL 5 MG TABLET PO SCH ×2 (10:39→22:32)
[2021-07-12] MEDS: BUDESONIDE/FORMETEROL FUMARATE 80/4.5 mcg INHALER IH SCH ×2 (10:40→22:32)
[2021-07-12] MEDS: MELATONIN 5 MG TABLETS PO SCH (22:32)
[2021-07-12] MEDS: THIAMINE HCL 100 MG TABLET (FP) PO SCH (22:32)
[2021-07-12] MEDS: QUEtiapine FUMARATE 50 MG TABLET PO SCH (22:32)
[2021-07-13] MEDS: IBUPROFEN 400 MG TABLET (FP) PO PRN (05:43)
[2021-07-13] MEDS ORDERED: diazePAM 5 MG TABLET PO ONE (06:00)
[2021-07-13] MEDS: metFORMIN HCL 500 MG TABLET (FP) PO SCH (08:10)
[2021-07-13 09:05] VITALS: BP 133/66; PULSE 77; TEMP 97.9
[2021-07-13] MEDS: FAMOTIDINE 20 MG TABLET PO SCH (10:55)
[2021-07-13] MEDS: BUDESONIDE/FORMETEROL FUMARATE 80/4.5 mcg INHALER IH SCH (10:55)
[2021-07-13] MEDS: LISINOPRIL 5 MG TABLET PO SCH (10:55)
[2021-07-13] MEDS: PRENATAL VITAMINS W/ FOLIC ACID TABLET (FP) PO SCH (10:55)
== END 2021-07-13 10:14 | disposition home or self-care (01) | DRG 774 ==
LOC: YASAS 15:07 → Y6N 19:33
PROVIDERS: ADMIT Allergy & Immunology; ATTEND Allergy & Immunology
PROC: HZ2ZZZZ Detoxification Services for Substance Abuse Treatment (ICD-10-PCS; principal; 2021-07-10)
DX: F10.230 Alcohol dependence with withdrawal, uncomplicated (principal); F14.20 Cocaine dependence, uncomplicated; F12.20 Cannabis dependence, uncomplicated; F17.210 Nicotine dependence, cigarettes, uncomplicated; F19.24 Other psychoactive substance dependence with psychoactive substance-induced mood disorder; F31.9 Bipolar disorder, unspecified; F25.9 Schizoaffective disorder, unspecified; E11.9 Type 2 diabetes mellitus without complications; I10 Essential (primary) hypertension; J45.909 Unspecified asthma, uncomplicated; K21.9 Gastro-esophageal reflux disease without esophagitis; Z79.84 Long term (current) use of oral hypoglycemic drugs; Z86.2 Personal history of diseases of the blood and blood-forming organs and certain disorders involving the immune mechanism; Z87.11 Personal history of peptic ulcer disease; Z88.8 Allergy status to other drugs, medicaments and biological substances; Z91.018 Allergy to other foods; Z91.013 Allergy to seafood; Z56.0 Unemployment, unspecified; Z59.0 Homelessness
CPT/HCPCS: 36415; 80053; 82962; 85027; 86780; 87389; C9803; U0003; U0005

== ENCOUNTER 2022-01-26 11:57 | Inpatient (IN) | payer OTHER ==
[2022-01-26] MEDS ORDERED: BISMUTH SUBSALICYLATE 524 MG/30 ML PO PRN (13:12)
[2022-01-26] MEDS ORDERED: MENTHOL/PHENOL 1 EACH UD MM PRN (13:12)
[2022-01-26] MEDS ORDERED: LOPERAMIDE HCL 2 MG CAPSULE PO PRN (13:12)
[2022-01-26] MEDS ORDERED: MAGNESIUM CITRATE 300 ML BOTTLE PO PRN (13:12)
[2022-01-26] MEDS ORDERED: chlordiazePOXIDE HCL 25 MG CAPSULE PO PRN (13:12)
[2022-01-26] MEDS ORDERED: ACETAMINOPHEN 325 MG TABLET (FP) PO PRN ×2 (13:12)
[2022-01-26] MEDS ORDERED: MAGNESIUM HYDROX 2400MG/30ML ORAL SUSPENSION 30 ML CUP PO PRN (13:12)
[2022-01-26] MEDS ORDERED: ONDANSETRON *ODT* 4 MG TABLET SL PRN (13:12)
[2022-01-26] MEDS ORDERED: NICOTINE 10 MG CARTRIDGE (INHALER) IH PRN (13:12)
[2022-01-26] MEDS ORDERED: MAG HYDROX/AL HYDROX/SIMETH 30 ML UNIT-DOSE CUP PO PRN (13:12)
[2022-01-26 14:35] VITALS: BMI 19.2
[2022-01-26] MEDS ORDERED: ALBUTEROL SO4 HFA INHALER IH PRN (16:12)
[2022-01-26] MEDS: metFORMIN HCL 500 MG TABLET (FP) PO SCH (18:07)
[2022-01-26] MEDS: IBUPROFEN 400 MG TABLET (FP) PO PRN (18:08)
[2022-01-26] MEDS: chlordiazePOXIDE HCL 25 MG CAPSULE PO SCH (18:09)
[2022-01-26] MEDS: INSULIN SLIDING SCALE (NOVOLOG) 1 VIAL SQ SCH (18:11)
[2022-01-26] MEDS: hydrOXYzine PAMOATE 25 MG CAPSULE (FP) PO SCH ×2 (18:12→18:47)
[2022-01-27] MEDS: chlordiazePOXIDE HCL 25 MG CAPSULE PO SCH ×6 (00:06→23:01)
[2022-01-27] MEDS: FAMOTIDINE 20 MG TABLET PO SCH ×3 (00:11→23:03)
[2022-01-27] MEDS: hydrOXYzine PAMOATE 25 MG CAPSULE (FP) PO SCH ×6 (00:11→23:04)
[2022-01-27] MEDS: MELATONIN 5 MG TABLETS PO SCH ×2 (00:11→23:43)
[2022-01-27] MEDS: THIAMINE HCL 100 MG TABLET (FP) PO SCH ×2 (00:11→23:02)
[2022-01-27] MEDS: metFORMIN HCL 500 MG TABLET (FP) PO SCH ×2 (06:45→17:52)
[2022-01-27] MEDS: INSULIN SLIDING SCALE (NOVOLOG) 1 VIAL SQ SCH ×2 (06:47→17:54)
[2022-01-27] MEDS: PRENATAL VITAMINS W/ FOLIC ACID TABLET (FP) PO SCH (10:24)
[2022-01-27 11:06] LABS: HEMATOCRIT 40.3 % (35.4-49); HEMOGLOBIN 13.1 GM/dL (11.7-16.9); MCH 30.8 pg (25.7-33.7); MCHC 32.4 g/dl (32.0-35.9); MEAN CELL VOLUME 94.8 fl (80-96); MEAN PLT VOLUME 9.5 fl (7.5-11.1); PLATELET COUNT 267 10^3/uL (134-434); RBC 4.25 M/mm3 (4.00-5.60); RDW 14.1 % (11.9-15.9); WHITE BLOOD COUNT 3.7 K/mm3 (4.0-10.0)
[2022-01-27 11:21] LABS: BLOOD UREA NITROGEN 16.9 mg/dL (7-18); CALCIUM 9.2 mg/dL (8.5-10.1)
[2022-01-27 11:22] LABS: ALBUMIN 3.7 g/dl (3.4-5.0); BILIRUBIN,TOTAL 0.4 mg/dL (0.2-1)
[2022-01-27 11:23] LABS: TOT PROT 7.4 g/dl (6.4-8.2)
[2022-01-27 13:41] LABS: HIV INTERPRETATION NEGATIVE (NEGATIVE)
[2022-01-27] MEDS: IBUPROFEN 400 MG TABLET (FP) PO PRN (14:21)
[2022-01-27] MEDS: QUEtiapine FUMARATE 50 MG TABLET PO SCH (23:04)
[2022-01-28] MEDS: chlordiazePOXIDE HCL 25 MG CAPSULE PO SCH ×3 (06:18→17:15)
[2022-01-28] MEDS: hydrOXYzine PAMOATE 25 MG CAPSULE (FP) PO SCH ×6 (06:18→22:56)
[2022-01-28] MEDS: INSULIN SLIDING SCALE (NOVOLOG) 1 VIAL SQ SCH ×2 (06:22→17:00)
[2022-01-28] MEDS: metFORMIN HCL 500 MG TABLET (FP) PO SCH ×2 (06:22→19:36)
[2022-01-28] MEDS: PRENATAL VITAMINS W/ FOLIC ACID TABLET (FP) PO SCH (10:57)
[2022-01-28] MEDS: FAMOTIDINE 20 MG TABLET PO SCH ×2 (10:57→22:55)
[2022-01-28] MEDS ORDERED: cloNIDine HCL 0.1 MG TABLET PO ONE (14:09)
[2022-01-28] MEDS ORDERED: INSULIN (NOVOLOG) ASPART 100 UNITS/ML 10ML VIAL ONE (17:55)
[2022-01-28] MEDS: MELATONIN 5 MG TABLETS PO SCH (22:55)
[2022-01-28] MEDS: THIAMINE HCL 100 MG TABLET (FP) PO SCH (22:55)
[2022-01-28] MEDS: QUEtiapine FUMARATE 50 MG TABLET PO SCH (22:56)
[2022-01-28] MEDS: METHYL SALICYLATE/MENTHOL OINT 30 GM TUBE TP SCH (23:04)
[2022-01-29] MEDS ORDERED: chlordiazePOXIDE HCL 10 MG CAPSULE PO PRN
[2022-01-29] MEDS: metFORMIN HCL 500 MG TABLET (FP) PO SCH ×2 (06:21→18:45)
[2022-01-29] MEDS: hydrOXYzine PAMOATE 25 MG CAPSULE (FP) PO SCH ×5 (06:22→23:01)
[2022-01-29] MEDS: chlordiazePOXIDE HCL 10 MG CAPSULE PO SCH ×4 (06:22→23:01)
[2022-01-29] MEDS: INSULIN SLIDING SCALE (NOVOLOG) 1 VIAL SQ SCH ×2 (06:22→18:47)
[2022-01-29] MEDS: FAMOTIDINE 20 MG TABLET PO SCH ×2 (10:55→23:01)
[2022-01-29] MEDS: PRENATAL VITAMINS W/ FOLIC ACID TABLET (FP) PO SCH (10:55)
[2022-01-29] MEDS: METHOCARBAMOL 500 MG TABLET PO PRN (10:56)
[2022-01-29] MEDS: IBUPROFEN 400 MG TABLET (FP) PO PRN (10:57)
[2022-01-29] MEDS: METHYL SALICYLATE/MENTHOL OINT 30 GM TUBE TP SCH ×2 (14:50→23:00)
[2022-01-29] MEDS: MELATONIN 5 MG TABLETS PO SCH (23:01)
[2022-01-29] MEDS: QUEtiapine FUMARATE 50 MG TABLET PO SCH (23:01)
[2022-01-29] MEDS: THIAMINE HCL 100 MG TABLET (FP) PO SCH (23:01)
[2022-01-30] MEDS: METHOCARBAMOL 500 MG TABLET PO PRN ×2 (01:05→10:08)
[2022-01-30] MEDS: IBUPROFEN 400 MG TABLET (FP) PO PRN (01:05)
[2022-01-30] MEDS ORDERED: chlordiazePOXIDE HCL 10 MG CAPSULE PO SCH (05:00)
[2022-01-30] MEDS: hydrOXYzine PAMOATE 25 MG CAPSULE (FP) PO SCH ×2 (05:14→10:08)
[2022-01-30] MEDS: INSULIN SLIDING SCALE (NOVOLOG) 1 VIAL SQ SCH (07:23)
[2022-01-30] MEDS: metFORMIN HCL 500 MG TABLET (FP) PO SCH (08:24)
[2022-01-30 09:34] VITALS: BP 134/92; PULSE 90; TEMP 98
[2022-01-30] MEDS: PRENATAL VITAMINS W/ FOLIC ACID TABLET (FP) PO SCH (10:08)
[2022-01-30] MEDS: FAMOTIDINE 20 MG TABLET PO SCH (10:08)
[2022-01-30] MEDS: METHYL SALICYLATE/MENTHOL OINT 30 GM TUBE TP SCH (10:08)
[2022-01-31] MEDS ORDERED: chlordiazePOXIDE HCL 10 MG CAPSULE PO ONE (05:00)
== END 2022-01-30 11:26 | disposition left against medical advice (07) | DRG 770 ==
LOC: YASAS 11:57 → Y6N 16:37
PROVIDERS: ADMIT Allergy & Immunology; ATTEND Allergy & Immunology
PROC: HZ2ZZZZ Detoxification Services for Substance Abuse Treatment (ICD-10-PCS; principal; 2022-01-26)
DX: F10.230 Alcohol dependence with withdrawal, uncomplicated (principal); F14.20 Cocaine dependence, uncomplicated; F13.10 Sedative, hypnotic or anxiolytic abuse, uncomplicated; F12.20 Cannabis dependence, uncomplicated; F17.210 Nicotine dependence, cigarettes, uncomplicated; F25.9 Schizoaffective disorder, unspecified; F31.81 Bipolar II disorder; I10 Essential (primary) hypertension; J45.909 Unspecified asthma, uncomplicated; K21.9 Gastro-esophageal reflux disease without esophagitis; E11.9 Type 2 diabetes mellitus without complications; Z79.84 Long term (current) use of oral hypoglycemic drugs; Z88.8 Allergy status to other drugs, medicaments and biological substances; Z91.013 Allergy to seafood
CPT/HCPCS: 36415; 80053; 82962; 85027; 86780; 87389; 87811; C9803-CS; J0735; U0003; U0005

== ENCOUNTER 2022-10-12 08:40 | Inpatient (IN) | payer OTHER ==
[2022-10-12 10:17] VITALS: BMI 18.8
[2022-10-12] MEDS ORDERED: ALBUTEROL SO4 HFA INHALER IH PRN (10:21)
[2022-10-12] MEDS ORDERED: DICYCLOMINE HCL 10 MG CAPSULE PO PRN (10:45)
[2022-10-12] MEDS ORDERED: POLYETHYLENE GLYCOL (HEALTHYLAX) 3350 17 GM PACKET PO PRN (10:45)
[2022-10-12] MEDS ORDERED: BENZOCAINE/MENTHOL (CHLORASEPTIC ) LOZENGE MM PRN (10:45)
[2022-10-12] MEDS ORDERED: MAGNESIUM HYDROX 2400MG/30ML ORAL SUSPENSION 30 ML CUP PO PRN (10:45)
[2022-10-12] MEDS ORDERED: MAG HYDROX/AL HYDROX/SIMETH 30 ML UNIT-DOSE CUP PO PRN (10:45)
[2022-10-12] MEDS ORDERED: P-EPHED 60MG/TRIPROLIDI 2.5MG TABLET PO PRN (10:45)
[2022-10-12] MEDS ORDERED: BISMUTH SUBSALICYLATE 262 MG/15 ML BTL PO PRN (10:45)
[2022-10-12] MEDS ORDERED: ONDANSETRON *ODT* 4 MG TABLET SL PRN (10:45)
[2022-10-12] MEDS ORDERED: IBUPROFEN 400 MG TABLET (FP) PO PRN (10:45)
[2022-10-12] MEDS ORDERED: LOPERAMIDE HCL 2 MG CAPSULE PO PRN (10:45)
[2022-10-12] MEDS ORDERED: guaiFENesin 200 MG/10 ML 10 ML UNIT-DOSE CUPS PO PRN (10:45)
[2022-10-12] MEDS ORDERED: ACETAMINOPHEN 325 MG TABLET (FP) PO PRN ×2 (10:45)
[2022-10-12] MEDS ORDERED: diazePAM 5 MG TABLET PO PRN (11:08)
[2022-10-12] MEDS: FAMOTIDINE 20 MG TABLET PO SCH (11:46)
[2022-10-12] MEDS: BUDESONIDE/FORMETEROL FUMARATE 80/4.5 mcg INHALER IH SCH ×2 (11:47→23:23)
[2022-10-12] MEDS: METHOCARBAMOL 500 MG TABLET PO PRN ×2 (11:50→18:10)
[2022-10-12] MEDS: IBUPROFEN 600 MG TABLET (FP) PO PRN (11:50)
[2022-10-12] MEDS: metFORMIN HCL 500 MG TABLET (FP) PO SCH (16:09)
[2022-10-12] MEDS: hydrOXYzine PAMOATE 25 MG CAPSULE (FP) PO PRN (18:10)
[2022-10-12] MEDS: THIAMINE HCL 100 MG TABLET (FP) PO SCH (23:22)
[2022-10-13] MEDS: metFORMIN HCL 500 MG TABLET (FP) PO SCH ×2 (06:13→17:57)
[2022-10-13] MEDS: hydrOXYzine PAMOATE 25 MG CAPSULE (FP) PO PRN ×2 (06:14→10:59)
[2022-10-13] MEDS: METHOCARBAMOL 500 MG TABLET PO PRN ×2 (06:14→10:57)
[2022-10-13] MEDS: IBUPROFEN 600 MG TABLET (FP) PO PRN (06:15)
[2022-10-13] MEDS: PRENATAL VITAMINS W/ FOLIC ACID TABLET (FP) PO SCH (10:57)
[2022-10-13] MEDS: BUDESONIDE/FORMETEROL FUMARATE 80/4.5 mcg INHALER IH SCH ×2 (10:57→22:30)
[2022-10-13] MEDS: FAMOTIDINE 20 MG TABLET PO SCH (10:57)
[2022-10-13] MEDS: diazePAM 5 MG TABLET PO SCH ×3 (10:59→22:28)
[2022-10-13 14:46] LABS: HEMATOCRIT 38.7 % (35.4-49); HEMOGLOBIN 12.6 GM/dL (11.7-16.9); MCH 30.8 pg (25.7-33.7); MCHC 32.5 g/dl (32.0-35.9); MEAN CELL VOLUME 94.8 fl (80-96); PLATELET COUNT 245 10^3/uL (134-434); RBC 4.08 M/mm3 (4.00-5.60); WHITE BLOOD COUNT 3.6 K/mm3 (4.0-10.0)
[2022-10-13 14:49] LABS: CALCIUM 8.8 mg/dL (8.5-10.1)
[2022-10-13 14:50] LABS: ALBUMIN 3.4 g/dl (3.4-5.0); BLOOD UREA NITROGEN 22.4 mg/dL (7-18)
[2022-10-13 14:55] LABS: BILIRUBIN,TOTAL 0.3 mg/dL (0.2-1); TOT PROT 6.8 g/dl (6.4-8.2)
[2022-10-13] MEDS: THIAMINE HCL 100 MG TABLET (FP) PO SCH (22:28)
[2022-10-13] MEDS: MELATONIN 5 MG TABLETS PO PRN (22:28)
[2022-10-14] MEDS: diazePAM 5 MG TABLET PO SCH ×4 (06:31→22:35)
[2022-10-14] MEDS: metFORMIN HCL 500 MG TABLET (FP) PO SCH ×2 (06:32→17:37)
[2022-10-14 09:19] VITALS: RESP 18
[2022-10-14] MEDS: FAMOTIDINE 20 MG TABLET PO SCH (11:02)
[2022-10-14] MEDS: BUDESONIDE/FORMETEROL FUMARATE 80/4.5 mcg INHALER IH SCH ×2 (11:02→22:35)
[2022-10-14] MEDS: PRENATAL VITAMINS W/ FOLIC ACID TABLET (FP) PO SCH (11:02)
[2022-10-14] MEDS: THIAMINE HCL 100 MG TABLET (FP) PO SCH (22:35)
[2022-10-14] MEDS: MELATONIN 5 MG TABLETS PO PRN (22:36)
[2022-10-14] MEDS: METHOCARBAMOL 500 MG TABLET PO PRN (22:36)
[2022-10-15] MEDS ORDERED: diazePAM 5 MG TABLET PO SCH (06:00)
[2022-10-15] MEDS: metFORMIN HCL 500 MG TABLET (FP) PO SCH (06:41)
[2022-10-15 09:22] VITALS: BP 149/99; PULSE 97; TEMP 97.8
[2022-10-16] MEDS ORDERED: diazePAM 5 MG TABLET PO SCH (06:00)
[2022-10-17] MEDS ORDERED: diazePAM 5 MG TABLET PO ONE (06:00)
== END 2022-10-15 09:35 | disposition home or self-care (01) | DRG 774 ==
LOC: YASAS 08:40 → Y6N 11:04
PROVIDERS: ADMIT Allergy & Immunology; ATTEND Surgery
PROC: HZ2ZZZZ Detoxification Services for Substance Abuse Treatment (ICD-10-PCS; principal; 2022-10-12)
DX: F10.230 Alcohol dependence with withdrawal, uncomplicated (principal); F14.20 Cocaine dependence, uncomplicated; F12.20 Cannabis dependence, uncomplicated; F25.9 Schizoaffective disorder, unspecified; F31.81 Bipolar II disorder; F19.24 Other psychoactive substance dependence with psychoactive substance-induced mood disorder; I10 Essential (primary) hypertension; J45.909 Unspecified asthma, uncomplicated; K21.9 Gastro-esophageal reflux disease without esophagitis; E11.9 Type 2 diabetes mellitus without complications; Z79.84 Long term (current) use of oral hypoglycemic drugs; R63.4 Abnormal weight loss; Z68.1 Body mass index [BMI] 19.9 or less, adult; Z86.2 Personal history of diseases of the blood and blood-forming organs and certain disorders involving the immune mechanism; Z86.69 Personal history of other diseases of the nervous system and sense organs; Z87.891 Personal history of nicotine dependence; Z88.8 Allergy status to other drugs, medicaments and biological substances; Z91.013 Allergy to seafood
CPT/HCPCS: 36415; 80053; 82962; 85027; 86780; C9803-CS; Q0162; U0003; U0005

== ENCOUNTER 2023-02-09 13:30 | Inpatient (IN) | payer OTHER ==
[2023-02-09 15:01] VITALS: BMI 19.0
[2023-02-09] MEDS ORDERED: IBUPROFEN 600 MG TABLET (FP) PO PRN (15:13)
[2023-02-09] MEDS ORDERED: LORazepam 1 MG TABLET PO PRN (15:13)
[2023-02-09] MEDS ORDERED: MAGNESIUM HYDROX 2400MG/30ML ORAL SUSPENSION 30 ML CUP PO PRN (15:13)
[2023-02-09] MEDS ORDERED: BENZOCAINE/MENTHOL (CHLORASEPTIC ) LOZENGE MM PRN (15:13)
[2023-02-09] MEDS ORDERED: BENZONATATE 200 MG CAPSULE PO PRN (15:13)
[2023-02-09] MEDS ORDERED: ACETAMINOPHEN 325 MG TABLET (FP) PO PRN (15:13)
[2023-02-09] MEDS ORDERED: ONDANSETRON *ODT* 4 MG TABLET SL PRN (15:13)
[2023-02-09] MEDS ORDERED: hydrOXYzine PAMOATE 25 MG CAPSULE (FP) PO PRN (15:13)
[2023-02-09] MEDS ORDERED: POLYETHYLENE GLYCOL (HEALTHYLAX) 3350 17 GM PACKET PO PRN (15:13)
[2023-02-09] MEDS ORDERED: LOPERAMIDE HCL 2 MG CAPSULE PO PRN (15:13)
[2023-02-09] MEDS ORDERED: BISMUTH SUBSALICYLATE 524 MG/30 ML PO PRN (15:13)
[2023-02-09] MEDS ORDERED: DICYCLOMINE HCL 10 MG CAPSULE PO PRN (15:13)
[2023-02-09] MEDS ORDERED: guaiFENesin 600 MG TABLET.ER (FP) PO PRN (15:13)
[2023-02-09] MEDS ORDERED: IBUPROFEN 400 MG TABLET (FP) PO PRN (15:13)
[2023-02-09] MEDS ORDERED: MAG HYDROX/AL HYDROX/SIMETH 30 ML UNIT-DOSE CUP PO PRN (15:13)
[2023-02-09] MEDS ORDERED: ALBUTEROL SO4 HFA INHALER IH PRN (15:18)
[2023-02-09] MEDS: LORazepam 2 MG TABLET PO SCH ×2 (17:57→22:56)
[2023-02-09] MEDS: METHYL SALICYLATE/MENTHOL OINT 30 GM TUBE TP SCH (22:51)
[2023-02-09] MEDS: BUDESONIDE/FORMETEROL FUMARATE 80/4.5 mcg INHALER IH SCH (22:55)
[2023-02-09] MEDS: THIAMINE HCL 100 MG TABLET (FP) PO SCH (22:55)
[2023-02-09] MEDS: FAMOTIDINE 20 MG TABLET PO SCH (22:55)
[2023-02-09] MEDS: MELATONIN 5 MG TABLETS PO SCH (22:56)
[2023-02-10] MEDS: LORazepam 2 MG TABLET PO SCH ×4 (05:53→23:10)
[2023-02-10 10:26] LABS: HEMATOCRIT 40.7 % (35.4-49); HEMOGLOBIN 13.7 GM/dL (11.7-16.9); MCH 30.8 pg (25.7-33.7); MCHC 33.7 g/dl (32.0-35.9); MEAN CELL VOLUME 91.4 fl (80-96); MEAN PLT VOLUME 9.1 fl (7.5-11.1); PLATELET COUNT 243 10^3/uL (134-434); RBC 4.45 M/mm3 (4.00-5.60); WHITE BLOOD COUNT 2.9 K/mm3 (4.0-10.0)
[2023-02-10 10:49] LABS: CALCIUM 8.9 mg/dL (8.5-10.1)
[2023-02-10 10:50] LABS: BLOOD UREA NITROGEN 14.1 mg/dL (7-18)
[2023-02-10] MEDS: FAMOTIDINE 20 MG TABLET PO SCH ×2 (10:50→23:11)
[2023-02-10] MEDS: cloNIDine HCL 0.1 MG TABLET PO PRN (10:50)
[2023-02-10] MEDS: PRENATAL VITAMINS W/ FOLIC ACID TABLET (FP) PO SCH (10:50)
[2023-02-10] MEDS: METHOCARBAMOL 500 MG TABLET PO PRN (10:50)
[2023-02-10] MEDS: MINERAL OIL/PETROLAT/WATER TOPICAL CREAM 113 GM JAR TP SCH (10:51)
[2023-02-10] MEDS: BUDESONIDE/FORMETEROL FUMARATE 80/4.5 mcg INHALER IH SCH ×2 (10:51→23:11)
[2023-02-10] MEDS: METHYL SALICYLATE/MENTHOL OINT 30 GM TUBE TP SCH ×2 (10:51→23:10)
[2023-02-10 10:55] LABS: BILIRUBIN,TOTAL 0.4 mg/dL (0.2-1); TOT PROT 6.5 g/dl (6.4-8.2)
[2023-02-10] MEDS: MELATONIN 5 MG TABLETS PO SCH (23:11)
[2023-02-10] MEDS: THIAMINE HCL 100 MG TABLET (FP) PO SCH (23:11)
[2023-02-11] MEDS: LORazepam 1 MG TABLET PO SCH ×4 (05:48→22:52)
[2023-02-11] MEDS: FAMOTIDINE 20 MG TABLET PO SCH ×2 (10:47→22:52)
[2023-02-11] MEDS: cloNIDine HCL 0.1 MG TABLET PO PRN (10:47)
[2023-02-11] MEDS: METHOCARBAMOL 500 MG TABLET PO PRN (10:47)
[2023-02-11] MEDS: METHYL SALICYLATE/MENTHOL OINT 30 GM TUBE TP SCH ×2 (10:48→22:53)
[2023-02-11] MEDS: PRENATAL VITAMINS W/ FOLIC ACID TABLET (FP) PO SCH (10:48)
[2023-02-11] MEDS: MINERAL OIL/PETROLAT/WATER TOPICAL CREAM 113 GM JAR TP SCH (10:49)
[2023-02-11] MEDS: BUDESONIDE/FORMETEROL FUMARATE 80/4.5 mcg INHALER IH SCH ×2 (10:49→22:52)
[2023-02-11] MEDS: THIAMINE HCL 100 MG TABLET (FP) PO SCH (22:52)
[2023-02-11] MEDS: MELATONIN 5 MG TABLETS PO SCH (22:52)
[2023-02-12] MEDS ORDERED: LORazepam 0.5 MG TABLET PO PRN
[2023-02-12] MEDS: LORazepam 0.5 MG TABLET PO SCH ×2 (05:34→10:43)
[2023-02-12 09:39] VITALS: RESP 17
[2023-02-12] MEDS: METHYL SALICYLATE/MENTHOL OINT 30 GM TUBE TP SCH (10:42)
[2023-02-12] MEDS: FAMOTIDINE 20 MG TABLET PO SCH (10:43)
[2023-02-12] MEDS: BUDESONIDE/FORMETEROL FUMARATE 80/4.5 mcg INHALER IH SCH (10:43)
[2023-02-12] MEDS: PRENATAL VITAMINS W/ FOLIC ACID TABLET (FP) PO SCH (10:43)
[2023-02-12] MEDS: MINERAL OIL/PETROLAT/WATER TOPICAL CREAM 113 GM JAR TP SCH (10:43)
[2023-02-12 13:22] VITALS: BP 130/90; PULSE 80; TEMP 97.2
[2023-02-13] MEDS ORDERED: LORazepam 0.5 MG TABLET PO ONE (05:00)
== END 2023-02-12 13:37 | disposition home or self-care (01) | DRG 774 ==
LOC: YASAS 13:30 → Y6N 15:29
PROVIDERS: ADMIT Allergy & Immunology; ATTEND Surgery
PROC: HZ2ZZZZ Detoxification Services for Substance Abuse Treatment (ICD-10-PCS; principal; 2023-02-09)
DX: F10.230 Alcohol dependence with withdrawal, uncomplicated (principal); F14.20 Cocaine dependence, uncomplicated; F25.0 Schizoaffective disorder, bipolar type; I10 Essential (primary) hypertension; J45.909 Unspecified asthma, uncomplicated; K21.9 Gastro-esophageal reflux disease without esophagitis; E11.9 Type 2 diabetes mellitus without complications; Z79.84 Long term (current) use of oral hypoglycemic drugs; Z87.891 Personal history of nicotine dependence; Z88.8 Allergy status to other drugs, medicaments and biological substances
CPT/HCPCS: 36415; 80053; 82962; 83036; 85027; 86780; C9803-CS; U0003; U0005

== ENCOUNTER 2023-05-14 09:58 | Inpatient (IN) | payer OTHER ==
[2023-05-14 10:52] VITALS: BMI 18.7
[2023-05-14] MEDS ORDERED: BENZOCAINE/MENTHOL (CHLORASEPTIC ) LOZENGE MM PRN (11:06)
[2023-05-14] MEDS ORDERED: guaiFENesin 600 MG TABLET.ER (FP) PO PRN (11:06)
[2023-05-14] MEDS ORDERED: POLYETHYLENE GLYCOL (HEALTHYLAX) 3350 17 GM PACKET PO PRN (11:06)
[2023-05-14] MEDS ORDERED: MAGNESIUM HYDROX 2400MG/30ML ORAL SUSPENSION 30 ML CUP PO PRN (11:06)
[2023-05-14] MEDS ORDERED: LOPERAMIDE HCL 2 MG CAPSULE PO PRN (11:06)
[2023-05-14] MEDS ORDERED: IBUPROFEN 400 MG TABLET (FP) PO PRN (11:06)
[2023-05-14] MEDS ORDERED: MAG HYDROX/AL HYDROX/SIMETH 30 ML UNIT-DOSE CUP PO PRN (11:06)
[2023-05-14] MEDS ORDERED: ACETAMINOPHEN 325 MG TABLET (FP) PO PRN (11:06)
[2023-05-14] MEDS ORDERED: DICYCLOMINE HCL 10 MG CAPSULE PO PRN (11:06)
[2023-05-14] MEDS ORDERED: ONDANSETRON *ODT* 4 MG TABLET SL PRN (11:06)
[2023-05-14] MEDS ORDERED: chlordiazePOXIDE HCL 25 MG CAPSULE PO PRN (11:06)
[2023-05-14] MEDS ORDERED: NALOXONE HCL 0.4 MG/ML VIAL IM PRN (11:06)
[2023-05-14] MEDS ORDERED: IBUPROFEN 600 MG TABLET (FP) PO PRN (11:06)
[2023-05-14] MEDS ORDERED: hydrOXYzine PAMOATE 25 MG CAPSULE (FP) PO PRN (11:06)
[2023-05-14] MEDS ORDERED: METHOCARBAMOL 500 MG TABLET PO PRN (11:06)
[2023-05-14] MEDS ORDERED: BENZONATATE 200 MG CAPSULE PO PRN (11:06)
[2023-05-14] MEDS ORDERED: BISMUTH SUBSALICYLATE 524 MG/30 ML PO PRN (11:06)
[2023-05-14] MEDS ORDERED: NALOXONE HCL (KLOXXADO) 8 MG SPRAY NS PRN (11:06)
[2023-05-14] MEDS ORDERED: LORazepam 1 MG TABLET PO PRN (11:19)
[2023-05-14] MEDS ORDERED: ALBUTEROL SO4 HFA INHALER IH PRN (13:19)
[2023-05-14] MEDS ORDERED: chlordiazePOXIDE HCL 25 MG CAPSULE PO SCH (17:00)
[2023-05-14] MEDS: metFORMIN HCL 500 MG TABLET (FP) PO SCH (17:39)
[2023-05-14] MEDS: LORazepam 2 MG TABLET PO SCH ×2 (17:39→22:44)
[2023-05-14] MEDS: THIAMINE HCL 100 MG TABLET (FP) PO SCH (22:43)
[2023-05-14] MEDS: FAMOTIDINE 20 MG TABLET PO SCH (22:43)
[2023-05-14] MEDS: MELATONIN 5 MG TABLETS PO SCH (22:44)
[2023-05-14] MEDS: BUDESONIDE/FORMETEROL FUMARATE 80/4.5 mcg INHALER IH SCH (22:44)
[2023-05-15] MEDS: LORazepam 2 MG TABLET PO SCH ×4 (05:46→22:28)
[2023-05-15] MEDS: metFORMIN HCL 500 MG TABLET (FP) PO SCH ×2 (08:17→17:16)
[2023-05-15] MEDS: FAMOTIDINE 20 MG TABLET PO SCH ×2 (10:52→22:27)
[2023-05-15] MEDS: PRENATAL VITAMINS W/ FOLIC ACID TABLET (FP) PO SCH (10:52)
[2023-05-15] MEDS: BUDESONIDE/FORMETEROL FUMARATE 80/4.5 mcg INHALER IH SCH ×2 (10:54→22:28)
[2023-05-15 13:09] LABS: HEMOGLOBIN 13.2 GM/dL (11.7-16.9); MCH 29.8 pg (25.7-33.7); MCHC 31.5 g/dl (32.0-35.9); MEAN CELL VOLUME 94.7 fl (80-96); MEAN PLT VOLUME 9.2 fl (7.5-11.1); PLATELET COUNT 207 10^3/uL (134-434); RBC 4.43 M/mm3 (4.00-5.60); RDW 14.2 % (11.9-15.9)
[2023-05-15 13:11] LABS: POTASSIUM 4.4 mmol/L (3.5-5.1)
[2023-05-15 13:19] LABS: CALCIUM 8.7 mg/dL (8.5-10.1)
[2023-05-15 13:20] LABS: ALBUMIN 2.9 g/dl (3.4-5.0); BLOOD UREA NITROGEN 12.6 mg/dL (7-18)
[2023-05-15 13:23] LABS: CREATININE 0.9 mg/dL (0.55-1.3)
[2023-05-15 13:24] LABS: BILIRUBIN,TOTAL 0.4 mg/dL (0.2-1); TOT PROT 6.3 g/dl (6.4-8.2)
[2023-05-15] MEDS: amLODIPine BESYLATE 2.5 MG TABLET (FP) PO SCH (14:11)
[2023-05-15] MEDS: THIAMINE HCL 100 MG TABLET (FP) PO SCH (22:28)
[2023-05-15] MEDS: MELATONIN 5 MG TABLETS PO SCH (22:28)
[2023-05-16] MEDS ORDERED: chlordiazePOXIDE HCL 25 MG CAPSULE PO SCH (05:00)
[2023-05-16] MEDS: LORazepam 1 MG TABLET PO SCH ×4 (05:59→22:06)
[2023-05-16] MEDS: metFORMIN HCL 500 MG TABLET (FP) PO SCH ×2 (05:59→17:23)
[2023-05-16] MEDS: amLODIPine BESYLATE 2.5 MG TABLET (FP) PO SCH (10:14)
[2023-05-16] MEDS: PRENATAL VITAMINS W/ FOLIC ACID TABLET (FP) PO SCH (10:14)
[2023-05-16] MEDS: FAMOTIDINE 20 MG TABLET PO SCH ×2 (10:14→22:03)
[2023-05-16] MEDS: BUDESONIDE/FORMETEROL FUMARATE 80/4.5 mcg INHALER IH SCH ×2 (10:17→22:04)
[2023-05-16] MEDS ORDERED: QUEtiapine FUMARATE 50 MG TABLET PO SCH (22:00)
[2023-05-16] MEDS: THIAMINE HCL 100 MG TABLET (FP) PO SCH (22:03)
[2023-05-16] MEDS: MELATONIN 5 MG TABLETS PO SCH (22:04)
[2023-05-17] MEDS ORDERED: chlordiazePOXIDE HCL 10 MG CAPSULE PO PRN
[2023-05-17] MEDS ORDERED: LORazepam 0.5 MG TABLET PO PRN
[2023-05-17] MEDS ORDERED: chlordiazePOXIDE HCL 10 MG CAPSULE PO SCH (05:00)
[2023-05-17] MEDS: LORazepam 0.5 MG TABLET PO SCH ×3 (05:55→17:23)
[2023-05-17] MEDS: metFORMIN HCL 500 MG TABLET (FP) PO SCH ×2 (06:16→17:23)
[2023-05-17] MEDS ORDERED: amLODIPine BESYLATE 5 MG TABLET (FP) PO SCH (10:00)
[2023-05-17] MEDS: FAMOTIDINE 20 MG TABLET PO SCH (10:32)
[2023-05-17] MEDS: PRENATAL VITAMINS W/ FOLIC ACID TABLET (FP) PO SCH (10:32)
[2023-05-17] MEDS: BUDESONIDE/FORMETEROL FUMARATE 80/4.5 mcg INHALER IH SCH (10:34)
[2023-05-17 13:07] VITALS: RESP 18
[2023-05-17 17:35] VITALS: BP 145/88; PULSE 61; TEMP 98.7
[2023-05-18] MEDS ORDERED: LORazepam 0.5 MG TABLET PO ONE (05:00)
[2023-05-18] MEDS ORDERED: chlordiazePOXIDE HCL 10 MG CAPSULE PO SCH (05:00)
[2023-05-19] MEDS ORDERED: chlordiazePOXIDE HCL 10 MG CAPSULE PO ONE (05:00)
== END 2023-05-17 19:02 | disposition left against medical advice (07) | DRG 770 ==
LOC: YASAS 09:58 → Y6N 11:39
PROVIDERS: ADMIT Allergy & Immunology; ATTEND Surgery
PROC: HZ2ZZZZ Detoxification Services for Substance Abuse Treatment (ICD-10-PCS; principal; 2023-05-14)
DX: F10.230 Alcohol dependence with withdrawal, uncomplicated (principal); F14.20 Cocaine dependence, uncomplicated; F12.20 Cannabis dependence, uncomplicated; I10 Essential (primary) hypertension; J45.909 Unspecified asthma, uncomplicated; K21.9 Gastro-esophageal reflux disease without esophagitis; E11.59 Type 2 diabetes mellitus with other circulatory complications; Z79.84 Long term (current) use of oral hypoglycemic drugs; M47.9 Spondylosis, unspecified; M19.072 Primary osteoarthritis, left ankle and foot; M19.071 Primary osteoarthritis, right ankle and foot; Z59.01 Sheltered homelessness; Z88.8 Allergy status to other drugs, medicaments and biological substances
CPT/HCPCS: 36415; 80053; 82962; 85027; 86780; 87635; Q0162